=== PATIENT | female | born 1985 | race Caucasian/White ===

== ENCOUNTER 2022-09-07 08:30 | Day surgery (SDC) | payer OTHER ==
[~2022-09-07 08:30] MED LIST: Albuterol 0.083% 2.5 MG/3 ML Neb Soln NEB PRN; HYDROmorphone 1 MG/ML Syringe IVPUSH PRN; Metoclopramide 10 MG/2 ML SDV IVPUSH PRN; Morphine 2 MG/ML SYRINGE IVPUSH PRN; Naloxone 0.4 MG/ML SDV IVPUSH PRN; Ondansetron 4 MG/2 ML SDV IVPUSH PRN; Sodium Chloride 0.9% 10 ML Syringe FLUSH PRN; Sodium Chloride 0.9% 2.5 ML Syringe FLUSH PRN; Sodium Chloride 0.9% 20 ML SDV IV PRN; ceFAZolin 1 GM in Premix Bag 1 BAG IV ONE; fentaNYL 50 MCG/ML SDV IVPUSH PRN
[2022-09-07] MEDS ORDERED: Lactated Ringers 1,000 ML IV SCH ×2 (09:30→12:00)
[2022-09-07 09:31] LABS: CARBON DIOXIDE,CO2 24.5 mmol/L (21.0-32.0); POTASSIUM,K 4.5 mmol/L (3.5-5.1)
[2022-09-07] MEDS ORDERED: Rocuronium Bromide 50 MG/5 ML Syringe ONE (09:47)
[2022-09-07] MEDS ORDERED: Propofol 200 MG/20 ML SDV ONE (09:47)
[2022-09-07] MEDS ORDERED: fentaNYL 100 MCG/2 ML SDV ONE (09:47)
[2022-09-07] MEDS ORDERED: Lidocaine 2% 5 ML SDV ONE (09:47)
[2022-09-07] MEDS ORDERED: Dexmedetomidine 200 MCG/2 ML SDV ONE (09:47)
[2022-09-07] MEDS ORDERED: Ondansetron 4 MG/2 ML SDV ONE (09:47)
[2022-09-07] MEDS ORDERED: Sugammadex Sodium 200 MG/2 ML VIAL ONE (09:47)
[2022-09-07] MEDS ORDERED: Ketorolac 30 MG/ML SDV ONE (09:47)
[2022-09-07] MEDS ORDERED: Water For Injection, Sterile 20 ML ONE (09:50)
[2022-09-07] MEDS ORDERED: Phenylephrine HCl In 0.9% NaCl 1 MG/10 ML Vial ONE (10:40)
[2022-09-07] MEDS ORDERED: ceFAZolin 1 GM Vial ONE (10:48)
[2022-09-07] MEDS ORDERED: Fluorescein 5 ML Vial ONE (11:22)
[2022-09-07] MEDS ORDERED: Ondansetron 4 MG/2 ML SDV IVPUSH PRN (11:46)
[2022-09-07] MEDS ORDERED: Morphine 4 MG/ML Syringe IVPUSH PRN (11:46)
[2022-09-07] MEDS ORDERED: Ketorolac 30 MG/ML SDV IVPUSH PRN (11:46)
[2022-09-07] MEDS ORDERED: Promethazine 25 MG/ML SDV IM PRN (11:46)
[2022-09-07] MEDS ORDERED: Acetaminophen/oxyCODONE 325-5 MG Tab PO PRN (11:46)
[2022-09-07] MEDS ORDERED: Ketorolac 30 MG/ML SDV IVPUSH ONE (11:46)
[2022-09-07] MEDS ORDERED: Belladonna Alkaloids/Opium 16.2-30 MG Supp RECTAL PRN (11:53)
[2022-09-07] MEDS: Acetaminophen/oxyCODONE 325-5 MG Tab PO PRN (17:57)
[2022-09-08 07:00] LABS: CARBON DIOXIDE,CO2 25.8 mmol/L (21.0-32.0)
[2022-09-08] MEDS: Acetaminophen/oxyCODONE 325-5 MG Tab PO PRN (11:18)
== END 2022-09-08 11:26 | disposition home or self-care (01) ==
LOC: MW.SDS 08:30 → UNDOADMOB 12:02 → MW.MS 12:02 → UNDODISOB 09-08 11:26 → MW.SDS 09-08 11:26
PROVIDERS: ATTEND Obstetrics & Gynecology
DX: N80.03 Adenomyosis of the uterus (principal); N72 Inflammatory disease of cervix uteri; Z79.899 Other long term (current) drug therapy; Z98.890 Other specified postprocedural states; Z88.2 Allergy status to sulfonamides; Z20.822 Contact with and (suspected) exposure to COVID-19
CPT/HCPCS: 36415; 58260; 80048; 84703; 85025; 85027; 86850; 86900; 86901; 87635; A9270; J0131; J0690; J1170; J1885; J2270; J2405; J2550; J2704; J3010; J3490; 00944; U0002